=== PATIENT | female | born 1950 | race Caucasian/White ===

== ENCOUNTER → 2017-07-31 | Outpatient (CLI) | payer OTHER, MEDICARE | LOC: NUC 10:48 | DX: M81.0 Age-related osteoporosis without current pathological fracture (principal) ==

== ENCOUNTER → 2019-11-26 | Outpatient (CLI) | payer OTHER, MEDICARE | LOC: NUC 10:34 | DX: M81.0 Age-related osteoporosis without current pathological fracture (principal); M85.88 Other specified disorders of bone density and structure, other site; Z78.0 Asymptomatic menopausal state ==